=== PATIENT | female | born 1965 | race Caucasian/White ===

== ENCOUNTER 2016-09-23 06:50 | Emergency (ER) | payer BC ==
[~2016-09-23] VITALS: Wt 75.0 kg
[~2016-09-23 06:50] MED LIST: IBUP-1542 PO; lopressor PO
--- NOTE | 2016-09-23 07:12 | ERD ---
ER Documentation Chief Complaint Date/Time DATE: 09/23/16 TIME: 07:10 Chief Complaint RIGHT SHOULDER PAIN FROM A FALL YESTERDAY. NO DEFORMITY. HPI This 50-year-old female who presents to the emergency department today with her daughter complaining of right shoulder pain after sustaining a trauma last night. Patient stated that she fell in the shower last night. She denies any previous trauma. She has not taken medication for the pain. Denies any fevers or chills. ROS All systems reviewed and are negative except as per history of present illness. Medications Home Meds Active Scripts Acetaminophen* (Tylophen*) 500 Mg Capsule, 1 CAP PO Q6H Y for PAIN AND OR ELEVATED TEMP, #30 CAP Prov:COLEEN BROOKS PA-C 09/23/16 Naproxen* (Naprosyn*) 500 Mg Tablet, 500 MG PO BID Y for PAIN AND/OR INFLAMMATION, #30 TAB Prov:COLEEN BROOKS PA-C 09/23/16 Tramadol HCl (Tramadol HCl) 50 Mg Tablet, 50 MG PO Q4 Y for PAIN, #20 TAB Prov:COLEEN BROOKS PA-C 09/23/16 Ibuprofen* (Motrin*) 600 Mg Tab, 600 MG PO Q6H Y for PAIN AND OR ELEVATED TEMP, #30 Prov:NEW DWYER NP 01/30/15 Reported Medications [lopressor] No Conflict Check, PO 01/12/14 Allergies Allergies: Coded Allergies: No Known Allergy (Unverified , 01/12/14) PMhx/Soc Hx Cardiac Disorders: Yes (HTN) Hx Alcohol Use: No Hx Substance Use: No Hx Tobacco Use: No Physical Exam Vitals Vital Signs Date Time Temp Pulse Resp B/P Pulse Ox O2 Delivery O2 Flow Rate FiO2 09/23/16 06:53 98.0 80 20 137/72 98 Physical Exam Const: No acute distress Head: Atraumatic Eyes: Normal Conjunctiva ENT: Normal External Ears, Nose and Mouth. Neck: Full range of motion..~ No meningismus. Resp: Clear to auscultation bilaterally Cardio: Regular rate and rhythm, no murmurs Skin: No petechiae or rashes MSK; right shoulder with no obvious deformity. No effusion. No ecchymosis. Unable to assess range of motion secondary to pain. Nontender elbow, wrist, clavicle humerus. Tenderness to palpation over lateral aspect of shoulder. Pulses 2+. Distal neurovascularly intact. Neur: Awake and alert Psych: Normal Mood and Affect Results 24 hrs Current Medications Medications (Trade) Dose Ordered Sig/Bryan Route PRN Reason Start Time Stop Time Status Last Admin Dose Admin Acetaminophen/ Hydrocodone Bitart ([place] (5/325)) 1 tab ONCE ONCE PO 09/23/16 07:30 09/23/16 07:31 DC 09/23/16 07:16 DIAGNOSTIC IMAGING REPORT Patient: SHAILESH MARK : 1965 Age: 50 Sex: F MR #: [id number] DOS: 09/23/16 0000 Ordering MD: COLEEN BROOKS PA-C Location: [facility] Room/Bed: PROCEDURE: XR Right Shoulder CLINICAL INDICATION: Trauma, fall in shower TECHNIQUE: AP internal and external rotation views and a Y-view were submitted. COMPARISON: None FINDINGS: Osseous structures: appear well mineralized and intact with no fracture or destructive process identified. Joint spaces: The glenohumeral joint appears unremarkable. The AC joint appears normal. Soft tissues: appear unremarkable. IMPRESSION: Unremarkable right shoulder. Physician Joseluis Date Time Electronically viewed and signed by Physician Joseluis on 09/23/2016 08:08 RH/ CC: COLEEN BROOKS PA-C Procedures/MDM This 50-year-old female who presents the emergency department today complaining of right shoulder pain after falling in the shower last night. Given the patient's trauma and inability to raise her arm without pain I did obtain images. Per the radiology report images of the right shoulder are unremarkable. Glenohumeral joint is unremarkable. AC joint is normal. Soft tissues are unremarkable. Low suspicion for acute fracture dislocation. Given that the patient is unable to raise her arm and felt some weakness I do have some suspicion that she sustained a rotator cuff injury. Low suspicion for septic joint or gout as patient is afebrile and otherwise well-appearing. She was given [place] in a sling here in the emergency department. Give her a short course of tramadol, Naprosyn, Tylenol. I recommended the patient follow with her primary care doctor for referral to retail product demo specialist that she may need advanced imaging. At this time the patient is stable for discharge and outpatient management. Patient should follow up with their PCP in the next 1-2 days. They may return to the emergency department sooner for any persistent or worsening of symptoms. Patient and daughter understood and agreed with the plan. Departure Diagnosis: Primary Impression: Shoulder injury Encounter type: initial encounter Laterality: right Qualified Code: S49.91XA - Shoulder injury, right, initial encounter Condition: Fair COLEEN BROOKS PA-C September 23, 2016 07:12
[2016-09-23] MEDS ORDERED: HYDROCODONE/APAP (5/325) TAB PO ONE (07:30)
--- NOTE | 2016-09-23 08:08 | RADRPT ---
PROCEDURE: XR Right Shoulder CLINICAL INDICATION: Trauma, fall in shower TECHNIQUE: AP internal and external rotation views and a Y-view were submitted. COMPARISON: None FINDINGS: Osseous structures: appear well mineralized and intact with no fracture or destructive process iden tified. Joint spaces: The glenohumeral joint appears unremarkable. The AC joint appears normal. Soft tissues: appear unremarkable. IMPRESSION: Unremarkable right shoulder. Physician Joseluis Date Time Electronically viewed and signed by Alanna Cervantes Physician on 09/23/2016 08:08 /
[2016-09-23] MEDS ORDERED: ACET500C5 PO (08:16)
[2016-09-23] MEDS ORDERED: TRAM50TA2 PO (08:16)
[2016-09-23] MEDS ORDERED: NAPR-260 PO (08:16)
[2016-09-23 08:25] VITALS: BP 128/68; PULSE 98; RESP 20; TEMP 97.9
== END 2016-09-23 08:24 | disposition home or self-care (01) ==
LOC: FTE 06:50
DX: S49.91XA Unspecified injury of right shoulder and upper arm, initial encounter (principal); I10 Essential (primary) hypertension; W18.2XXA Fall in (into) shower or empty bathtub, initial encounter; Y92.9 Unspecified place or not applicable
CPT/HCPCS: 73030; Z7502; Z7610